=== PATIENT | female | born 2000 | race Caucasian/White ===

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

== ENCOUNTER 2021-11-27 19:07 | Emergency (ER) | payer OTHER, BC ==
[2021-11-27 19:34] VITALS: BP 148/82; PULSE 103; RESP 20; TEMP 98
[2021-11-27] MEDS ORDERED: PROPARACAINE 0.5% OPHTH DROPS 15 ML BTL LEFT EYE STA (20:26)
[2021-11-27] MEDS ORDERED: FLUORESCEIN STRIPS 1 MG STRIP LEFT EYE ONE (20:26)
[2021-11-27] MEDS ORDERED: TOBRAMYCIN 0.3% OPHTH DROPS 5 ML BTL LEFT EYE STA (20:43)
--- NOTE | 2021-11-27 20:44 | ED ---
Eye Problem HPI - General Chief complaint: Eye Problems Stated complaint: lt eye - [facility] Time Seen by Provider: 11/27/21 20:20 Source: patient Mode of arrival: ambulatory Limitations: no limitations - History of Present Illness Initial comments: This is a pleasant 20-year-old female who presents to the emergency department after injuring her left eye at work. Patient states she pulled a file out and the end of the file hit her in the left eye. Patient was complaining of some visual disturbance to her central vision. Patient states that's actually i mproving. History of Lasix surgery. No other history of eye disorders. No headache, no fever or chills, no changes in hearing, no sore throat or difficulty with speech, no neck pain, no chest pain or shortness of breath, no abdominal pain, no nausea or vomiting, no changes in urination or bowel movements, no numbness or tingling, no extremity pain, no skin rashes or lesions. Past medical, surgical, social, and family history reviewed. MD chief complaint: eye injury - Related Data Home Medications Medication Instructions Recorded Confirmed Inulin/Chromium Picolinate [Fiber 1 tab PO DAILY 11/25/15 01/01/16 Gummies Chew] Multivitamin [Multivitamins Adult 1 tab PO DAILY 11/25/15 01/01/16 Gummies] Fluticasone Propionate [Flonase 2 spray EA NOSTRIL DAILY 01/01/16 01/01/16 Allergy Relief] Norethindrone-E.estradiol-Iron 1 tab PO DAILY 01/01/16 01/01/16 [Blisovi Fe 1.5-30 Tablet] Allergies Allergy/AdvReac Type Severity Reaction Status Date / Time Penicillins AdvReac Nausea & Verified 11/27/21 19:34 Vomiting Review of Systems ROS Statement: Those systems with pertinent positive or pertinent negative responses have been documented in the HPI. ROS Other: All systems not noted in ROS Statement are negative. Past Medical History Past Medical History: No Reported History Additional Past Medical History / Comment(s): fractured nose,UTI'S History of Any Multi-Drug Resistant Organisms: None Reported Additional Past Surgical History / Comment(s): nasal surgery Past Anesthesia/Blood Transfusion Reactions: No Reported Reaction Past Psychological History: Anxiety, Depression, Panic Disorder Smoking Status: Never smoker Past Alcohol Use History: None Reported Past Drug Use History: None Reported - Past Family History Father Family Medical History: Diabetes Mellitus General Exam - General Exam Comments Initial Comments: Patient in no distress. Does not appear to be ill or toxic. Limitations: no limitations General appearance: alert, in no apparent distress Head exam: Present: atraumatic, normocephalic, normal inspection Eye exam: Present: normal appearance, PERRL, EOMI. Absent: scleral icterus, conjunctival injection, periorbital swelling Expanded Eyelids: Normal Inspection: Bilateral Pupils: Regular, Round: Bilateral Sclera/Conjunctival: Normal Inspection: Right (Patient has a very superficial corneal abrasion to the left eye, central, no hypopyon or hyphema) Anterior chamber: Normal Inspection: Bilateral Posterior chamber: Normal Inspection: Bilateral ENT exam: Present: normal exam Neck exam: Present: normal inspection Respiratory exam: Absent: respiratory distress GI/Abdominal exam: Present: soft. Absent: tenderness Extremities exam: Present: normal inspection Back exam: Present: normal inspection Neurological exam: Present: alert, oriented X3, CN II-XII intact Psychiatric exam: Present: normal affect, normal mood. Absent: anxious Skin exam: Present: warm, dry, intact, normal color. Absent: rash Course Vital Signs 11/27/21 19:32 Temperature 98 F Pulse Rate 103 H Respiratory 20 Rate Blood Pressure 148/82 O2 Sat by Pulse 97 Oximetry Procedures - Procedures Initial comment: patient was set up for eye examination. Topical anesthetic was used. Staining was instilled. Cortes lamp examination reveals no evidence of damage to the anterior chamber. Negative Almaz's test. No hypopyon or hyphema. Very superficial vertical visual acuity is 20/13 in the right eye. 20/20 in the left eye. Visual robertson by confrontation are normal. Funduscopic examination was normal with limited examination. Medical Decision Making - Medical Decision Making Superficial corneal abrasion without evidence of any other significant eye injury or abnormality. We'll have the patient follow-up with ophthalmology as this is a work-related injury. Tobramycin drops, one drop to the affected eye every 4-6 hours, or as directed by the health safety manager. Patient was told to return to the ER for any signs or symptoms worsen. Told to return immediately if any other problems arise. All questions answered. Treatment plan discussed. Patient in agreement Every effort has been made to ensure accuracy of this dictation. However, due to the limitations of electronic medical records and dictation devices, errors in charting still occur. Supervising physician is Disposition Clinical Impression: Corneal abrasion, left Disposition: HOME SELF-CARE Condition: Good Instructions (If sedation given, give patient instructions): Corneal Abrasion (ED) Additional Instructions: Eye antibiotic drops, one drop to the affected eye every 4-6 hours for 2-3 days. Follow-up with the health safety manager tomorrow as discussed. Call the health safety manager office at 8 AM in the morning for the follow-up appointment. Return to the ER immediately if any symptoms worsen, new symptoms arise, or any other problems develop. Is patient prescribed a controlled substance at d/c from ED?: No Referrals: Freddie Polo MD [STAFF PHYSICIAN] - 11/28/21 8:00 am Time of Disposition: 20:44
== END 2021-11-27 20:55 | disposition home or self-care (01) ==
LOC: EC 19:07
DX: S05.02XA Injury of conjunctiva and corneal abrasion without foreign body, left eye, initial encounter (principal); W22.8XXA Striking against or struck by other objects, initial encounter; Y99.0 Civilian activity done for income or pay; Z88.0 Allergy status to penicillin
CPT/HCPCS: 99283